=== PATIENT | female | born 1970 | race American Indian/Alaskan Native ===

== ENCOUNTER 2017-10-16 11:55 | Emergency (ER) | payer OTHER ==
[2017-10-16 12:05] VITALS: BP 158/91
[2017-10-16] MEDS ORDERED: PERCOCET 5/325 PO ONE (12:46)
--- NOTE | 2017-10-16 12:46 | Emergency Department Report ---
ED ENT HPI - General Chief complaint: Dental/Oral Stated complaint: FEELING FAINT/ MOUTH PAIN Time Seen by Provider: 10/16/17 12:24 Source: patient, family Mode of arrival: Ambulatory Limitations: No Limitations - History of Present Illness Initial comments: This is for 47-year-old female reports that he has a history of dental abscesses. She said he saw Dr. Perez who is a dentist in [place]. She said she has an appointment on October 20 for root canal. She said she has been on 2 rounds of antibiotic and is currently on amoxicillin and Motrin prescription strength and that the pain medications dictation isn't helping. She said the pain is getting worse it is 10/10 and achy and worse with talking and eating. No alleviating factors. Denies any medical problems denies any nausea vomiting, drooling, nasal congestion, cough, shortness of breath or chest pain. MD complaint: tooth pain Onset/Timin -: Gradual Location: tooth # (left and right upper and lower back tooth.) Severity: severe Severity scale (0 -10): 10 Quality: aching Consistency: constant Improves with: none Worsens with: eating Context- Dental: history of dental caries, poor dental care Associated Symptoms: toothache. denies: fever, cough, gum swelling, pain with swallowing, sore throat, tinnitus, discharge from ear, rhinorrhea - Related Data Previous Rx's Medication Instructions Recorded Last Taken Type Acetaminophen/Codeine [Tylenol 1 tab PO Q6H PRN #12 tab 10/16/17 Unknown Rx /Codeine # 3 tab] Ibuprofen [Motrin] 600 mg PO Q8H PRN #21 tablet 10/16/17 Unknown Rx Allergies Allergy/AdvReac Type Severity Reaction Status Date / Time No Known Allergies Allergy Unverified 10/16/17 12:05 ED Dental HPI - General Chief complaint: Dental/Oral Stated complaint: FEELING FAINT/ MOUTH PAIN Time Seen by Provider: 10/16/17 12:24 Source: patient Mode of arrival: Ambulatory Limitations: No Limitations - Related Data Previous Rx's Medication Instructions Recorded Last Taken Type Acetaminophen/Codeine [Tylenol 1 tab PO Q6H PRN #12 tab 10/16/17 Unknown Rx /Codeine # 3 tab] Ibuprofen [Motrin] 600 mg PO Q8H PRN #21 tablet 10/16/17 Unknown Rx Allergies Allergy/AdvReac Type Severity Reaction Status Date / Time No Known Allergies Allergy Unverified 10/16/17 12:05 ED Review of Systems ROS: Stated complaint: FEELING FAINT/ MOUTH PAIN Other details as noted in HPI Constitutional: denies: chills, fever Eyes: denies: eye pain, eye discharge, vision change ENT: dental pain. denies: ear pain, throat pain, congestion Respiratory: denies: cough, shortness of breath, SOB with exertion, SOB at rest , wheezing Cardiovascular: denies: chest pain, palpitations, edema, syncope Gastrointestinal: denies: nausea, vomiting Musculoskeletal: denies: back pain, joint swelling, arthralgia Skin: denies: rash, lesions Neurological: denies: headache ED Past Medical Hx - Past Medical History Previous Medical History?: No - Surgical History Past Surgical History?: No Additional Surgical History: Hysterectomy - Family History Family history: no significant - Social History Smoking Status: Never Smoker Substance Use Type: None - Medications Home Medications: Home Medications Medication Instructions Recorded Confirmed Last Taken Type Acetaminophen/Codeine [Tylenol 1 tab PO Q6H PRN #12 tab 10/16/17 Unknown Rx /Codeine # 3 tab] Ibuprofen [Motrin] 600 mg PO Q8H PRN #21 tablet 10/16/17 Unknown Rx ED Physical Exam - General Limitations: No Limitations General appearance: alert, in no apparent distress - Head Head exam: Present: atraumatic, normocephalic, normal inspection - Eye Eye exam: Present: normal appearance, PERRL, EOMI Pupils: Present: normal accommodation - ENT ENT exam: Present: normal orophraynx, mucous membranes moist, TM's normal bilaterally, normal external ear exam - Expanded ENT Exam Expanded Mouth exam: Present: normal external inspection Teeth exam: Present: dental caries, dental tenderness # (tender to palpate to tooth #1234 number 12,13,14 15,16 #32 31,33,29 and #17 18,19,20), gingival enlargement. Absent: normal inspection, fractured tooth # 1 - Dental Tenderness (dental tenderness), Other (dental caries) 2 - Dental Tenderness (dental tenderness and caries) 3 - Dental Tenderness (tenderness) 4 - Dental Tenderness (dental tenderness), Other (caries) Throat exam: Positive: normal inspection - Neck Neck exam: Present: normal inspection, full ROM. Absent: tenderness, meningismus, lymphadenopathy - Respiratory Respiratory exam: Present: normal lung sounds bilaterally. Absent: respiratory distress, chest wall tenderness - Cardiovascular Cardiovascular Exam: Present: regular rate, normal rhythm, normal heart sounds, rubs. Absent: systolic murmur, diastolic murmur - Extremities Exam Extremities exam: Present: normal inspection, full ROM, normal capillary refill. Absent: tenderness, pedal edema, joint swelling, calf tenderness - Neurological Exam Neurological exam: Present: alert, oriented X3, normal gait - Psychiatric Psychiatric exam: Present: normal affect, normal mood - Skin Skin exam: Present: warm, dry, intact, normal color. Absent: rash ED Course Vital Signs 10/16/17 12:01 Temperature 98.9 F Pulse Rate 88 Respiratory 18 Rate Blood Pressure 158/91 O2 Sat by Pulse 98 Oximetry - Reevaluation(s) Reevaluation #1: 10/16/17 13:46 given Percocet 5/325 mg 2 tablets by mouth for her toothache which she said her pain is now down to 2/10. She had no adverse reaction from medication ED Medical Decision Making - Medical Decision Making This is a 47-year-old female presented to the emergency room with toothache right upper and left upper and lower mouth. He reports that she has an appointment with her dentist on 10/23/2017 and she is on ibuprofen and amoxicillin but she is still in pain. She is here to be treated. I saw patient in physical exam reports oral mucosa is moist, no pharyngeal erythema or exudate, uvula is midline, tongue is normal and oral airways patent. Patient with dental caries, dental tenderness and gingivitis. Caries and tenderness located to right and left upper and lower teeth. She does not have any sign of abscess or cellulitis. No facial swelling seen. Patient was given pain medication and emergency room which helped her pain. Severity diagnosis and treatment plan and I told her she'll need to go to the dentist for evaluation and to treat underlying problems that associated with her toothache. She voiced understanding. Assessment and plan Toothache-pain is better with Percocet 5/325 2 tablets by mouth and emergency room. She will be discharged home on Tylenol No. 3 and ibuprofen. Gingivitis-patient has appointment on 10/23/2017 for root canal. I discussed with her she needs to continue her antibiotic. Dental caries-scheduled for root canal and she is on antibiotic. I educated patient on oral care, medication, treatment plan, diagnosis and need to follow-up for a dental procedure and she voiced understanding. Pt discharged home with her family in stable condition. Her vital signs are stable she is afebrile and her pain is better. Discharged home to follow-up with her dentist as scheduled with prescription for Tylenol 3 and Motrin. - Differential Diagnosis tooth abscess, FX tooth, ginivitis,caries, pharyngitis, sinusitis, tootahe Critical care attestation.: If time is entered above; I have spent that time in minutes in the direct care of this critically ill patient, excluding procedure time. ED Disposition Clinical Impression: Dental cavities, Toothache, Gingivitis Disposition: TO HOME OR SELFCARE Is pt being admited?: No Does the pt Need Aspirin: No Condition: Stable Instructions: Dental Caries (ED), Gingivitis (ED), Toothache (ED) Additional Instructions: Please follow up with dentist as discussed. See alternative dentist and discharge instruction paperwork if needed. Take Motrin for mild to moderate pain and please take this medication with food. Take Tylenol No. 3 for severe pain and please do not drive or operate heavy machinery while taking this medication. Continue to take amoxicillin as prescribed by your dentist keep dental appointment for 10/20/2017 with your dentist. Please see floss twice daily Gargle Peridex mouthwash twice daily Prescriptions: Acetaminophen/Codeine [Tylenol /Codeine # 3 tab] 1 tab PO Q6H PRN #12 tab PRN Reason: severe pain Ibuprofen [Motrin] 600 mg PO Q8H PRN #21 tablet PRN Reason: mild to moderate pain Referrals: PRIMARY CARE, [Primary Care Provider] - 10/19/17 your dentist ,Dr. Perez [Other] - 10/20/17 Forms: Accompanied Note, Work/School Release Form(ED)
== END 2017-10-16 13:56 | disposition home or self-care (01) ==
LOC: ED 11:55
DX: K02.9 Dental caries, unspecified (principal); K05.00 Acute gingivitis, plaque induced; Z90.710 Acquired absence of both cervix and uterus
CPT/HCPCS: 99282